=== PATIENT | female | born 2000 | race African-American/Black ===

== ENCOUNTER 2020-02-12 02:32 | Emergency (ER) | payer OTHER ==
[~2020-02-12] VITALS: Ht 157.5 cm; Wt 68.0 kg
[2020-02-12 03:33] LABS: ABSOLUTE NEUTROPHILS 15.3 thou/uL (1.4-8.2); BASOPHILS 0.1 % (0.0-2.0); EOSINOPHILS 0.1 % (0.0-3.0); HEMATOCRIT 52.8 % (37.0-47.0); HEMOGLOBIN 17.1 gm/dL (12.0-15.0); LYMPHOCYTES 3.7 % (24.0-44.0); MCH 27.9 pg (26.0-34.0); MCHC 32.5 g/dL (28.0-37.0); MCV 85.9 fL (80.0-100.0); MONOCYTES 1.3 % (1.0-8.0); PLATELET COUNT 357 thou/uL (150-400); POLYS 94.8 % (36.0-66.0); RBC 6.14 mil/uL (4.20-5.00); RDW 14.3 % (10.5-14.5); WBC 16.2 thou/uL (4.0-11.0)
[2020-02-12 03:35] LABS: CALCIUM 10.2 mg/dL (8.5-10.1); CREATININE 1.3 mg/dL (0.6-1.0); POTASSIUM 3.7 mmol/L (3.5-5.1)
[2020-02-12 03:41] LABS: ALBUMIN 5.3 g/dL (3.4-5.0); TOTAL BILIRUBIN 0.4 mg/dL (0.2-1.0); TOTAL PROTEIN 10.1 g/dL (6.4-8.2)
[2020-02-12] MEDS ORDERED: PEPCID20 MG PO (05:47)
[2020-02-12] MEDS ORDERED: ZOFRAN ODT4 MG PO (05:47)
[2020-02-12 06:01] VITALS: BP 119/69
== END 2020-02-12 06:02 | disposition home or self-care (01) ==
LOC: ER 02:32
PROVIDERS: Emergency Medicine
DX: R11.2 Nausea with vomiting, unspecified (principal); R19.7 Diarrhea, unspecified; R10.9 Unspecified abdominal pain; J45.909 Unspecified asthma, uncomplicated